=== PATIENT | female | born 2000 | race African-American/Black ===

== ENCOUNTER 2022-08-19 15:09 | Emergency (ER) | payer OTHER ==
[~2022-08-19] VITALS: Ht 157.5 cm; Wt 49.0 kg
--- NOTE | 2022-08-19 15:30 | NUR ---
Pt brought by friend, [email or web address], pt presents to ER with L foot pain/swelling after she twisted L foot, VSS, denies other injuries, will cont to monitor.
--- NOTE | 2022-08-19 15:45 | NUR ---
Dr Scott evaluating patient in the triage room
[2022-08-19 16:30] VITALS: BP_SYST 125
[2022-08-19] MEDS ORDERED: IBUPROFEN 800 MG TABLET PO ONE (17:00)
[2022-08-19] MEDS ORDERED: IBUP-1971 PO (18:15)
[2022-08-19 19:13] VITALS: BP_SYST 125
--- NOTE | 2022-08-19 19:14 | NUR ---
Patient given written and verbal discharge instructions and verbalizes understanding. ER MD discussed with patient the results and treatment provided. Patient in stable condition. ID arm band removed. Rx of Motrin given. Patient educated on pain management and to follow up with PMD. Pain Scale 3/10. Opportunity for questions provided and answered. Medication side effect fact sheet provided.
== END 2022-08-19 19:13 | disposition home or self-care (01) ==
LOC: SED 15:09
DX: S93.612A Sprain of tarsal ligament of left foot, initial encounter (principal); Z79.899 Other long term (current) drug therapy; X58.XXXA Exposure to other specified factors, initial encounter; Y93.89 Activity, other specified; Y92.89 Other specified places as the place of occurrence of the external cause; Y99.8 Other external cause status
CPT/HCPCS: 99283